=== PATIENT | female | born 1990 | race Caucasian/White ===

== ENCOUNTER 2020-11-13 14:56 | Emergency (ER) | payer SELFPAY ==
[2020-11-13] VITALS (8 sets, daily range): BP systolic 109–133; BP diastolic 81–92; PULSE 81–103; RESP 10–18; TEMP 36.4–36.9; O2SAT 96–100
[2020-11-13 16:46] LABS: Basophils Absolute Auto 0.1 K/mm3 (0.0-0.1); Basophils Percent Auto 0.7 % (0.2-1.2); Eosinophils Absolute Auto 0.1 K/mm3 (0-0.3); Eosinophils Percent Auto 0.7 % (0-4.4); Hematocrit 39.5 % (37.0-47.0); Hemoglobin 13.5 g/dL (12.0-15.0); Immature Granulocyte Absolute 0.02 K/mm3 (0.00-0.031); Immature Granulocyte Percent A 0.2 % (0-0.5); Lymphocytes Absolute Auto 3.08 K/mm3 (0.9-3.2); Lymphocytes Percent Auto 35.2 % (18.3-44.2); Mean Corpuscular HGB Conc 34.2 g/dl (32-36); Mean Corpuscular Hemoglobin 32.2 pg (26-34); Mean Corpuscular Volume 94.3 fl (80-100); Monocytes Absolute Auto 0.4 K/mm3 (0.1-0.6); Monocytes Percent Auto 4.2 % (2.6-8.5); Neutrophils Absolute Auto 5.2 K/mm3 (1.3-6.7); Platelet Count Result 209 k/mm3 (150-375); Red Blood Count 4.19 M/mm3 (4.2-5.4); Red Cell Distribution Width 12.2 % (11.5-14.5); White Blood Count 8.8 K/mm3 (4.5-10.0)
[2020-11-13 16:50] LABS: Add Urine Microscopic? YES; Appearance Urine Cloudy (Clear); Bacteria Urine Trace /hpf; Bilirubin Urine Negative (Negative); Blood Urine Negative (Negative); Color Urine Yellow (Yellow); Glucose Urine UA Negative (Negative); Ketones Urine 1+ mg/dL (Negative); Leukocyte Esterase Ur Trace LEU/UL (Negative); Mucus Urine Few /lpf; Nitrate Urine Negative (Negative); Protein Urine Negative (Negative); RBC Urine 0-2 /hpf (0-2); Specific Grav Ur 1.009 (1.001-1.035); Squamous Epithelial Cell Urine Many /hpf (Few); Urobilinogen Urine Negative mg/dL (<2.0); WBC Urine 0-3 /hpf
[2020-11-13 16:59] LABS: Alanine Aminotransferase 13 U/L (4-35); Albumin Level 4.1 g/dL (3.5-5.1); Alkaline Phosphatase 42 U/L (38-126); Anion Gap 6 mmol/L (8-16); Aspartate Amino Transferase 18 U/L (14-36); Bilirubin,Total 0.4 mg/dL (0.2-1.3); Blood Urea Nitrogen 11 mg/dL (7-17); Calcium 9.1 mg/dL (8.4-10.2); Carbon Dioxide 29 mmol/L (22-30); Chloride 104 mmol/L (98-107); Estimated CRCL calculation 79 ml/min; Estimated Glomerular Filt Rate > 60; Glucose 110 mg/dL (65-105); Potassium 3.3 mmol/L (3.4-5.0); Sodium 139 mmol/L (137-145)
[2020-11-13 17:26] LABS: Ethanol < 10 mg/dL (<10)
[2020-11-13 17:37] LABS: Barbiturate Screen Urine Negative (Negative); Benzodiazepines Screen Urine Negative (Negative)
[2020-11-13 17:41] LABS: Cannabinoid Screen Urine Positive (Negative); Cocaine Screen Urine Negative (Negative); Methadone Screen Urine Negative (Negative); Opiate Screen Urine Negative (Negative); Phencyclidine Screen Urine Negative (Negative)
--- NOTE | 2020-11-13 18:02 | ED.GENADULT ---
HPI - General Adult General Chief complaint: Unspecified Stated complaint: think dehydrated Time Seen by Provider: 11/13/20 16:22 Source: patient Mode of arrival: ambulatory Limitations: no limitations History of Present Illness HPI narrative: 30-year-old female She arrives complaining that she thinks she might be dehydrated But after that her thoughts get pretty disorganized and she really does not explain her thinking very well, for instance she still has a wristband from [place] on and when asked about it just says I thought he might need something She does not indicate any suicidal or homicidal thoughts nor any hallucinations, however she has been not sleeping very much and according to her mom called in somewhat random hyperactivity Patient states that she smokes cigarettes and cannabis but uses no other drugs and does not drink Onset (ago): day(s) Related Data Home Medications Medication Instructions Recorded Confirmed melatonin 5 mg PO HS 11/13/20 11/13/20 Allergies Allergy/AdvReac Type Severity Reaction Status Date / Time bee venom protein (honey bee) Allergy Swelling Verified 11/13/20 16:51 of Lip/Tongue/Throat aripiprazole [From Abilify] AdvReac Other Verified 11/13/20 15:05 escitalopram [From Lexapro] AdvReac Other Verified 11/13/20 15:05 prednisone AdvReac Anxiety Verified 11/13/20 15:05 quetiapine [From Seroquel] AdvReac Agitated Verified 11/13/20 16:51 Review of Systems Review of Systems: ROS unobtainable: Yes unobtainable due to mental status Respiratory: Respiratory: Denies cough Gastrointestinal: Gastrointestinal: Denies diarrhea and Denies vomiting PMFSH Social History Social History Gender identity (if verbalized by the patient): Female Exam Const: General: cooperative and no acute distress Limitations: behavioral limitations HENMT: Head: normal to inspection, normocephalic and atraumatic Ears: external ears normal General nose exam: no epistaxis Eyes: Conjunctivae: conjunctivae normal EOM: EOMs intact bilaterally Neck: Neck: normal visual inspection, supple and no JVD Thyroid: thyroid normal Resp: Effort & Inspection: normal respiratory effort and not labored Auscultation: clear to auscultation bilaterally Cardio: Rate: regular rate Rhythm: regular rhythm Heart sounds: no murmurs GI: GI Palp: Yes Soft to palpation and No Tenderness to palpation present (GI) Skin: General skin exam: normal color and no rashes or lesions noted Neuro: General: moves all extremities and CN's II-XI intact bilaterally Speech: normal speech Extrem: General: normal to inspection and no pedal edema Psych: Speech and movement: Clear speech present Thought process: Other thought process findings present (Circumstantial and disorganized) Course Course Emergency Course: Exam and labs are unremarkable and she is cleared medically for behavioral assessment She was seen by crisis and they report they are satisfied that she is OK for d/c Vital Signs Vital signs: Vital Signs Temperature 36.8 C 11/13/20 14:59 Pulse Rate 95 11/13/20 14:59 Respiratory Rate 18 11/13/20 14:59 Blood Pressure 123/92 H 11/13/20 14:59 Pulse Oximetry 100 11/13/20 14:59 Temperature 36.8 C 11/13/20 23:00 Pulse Rate 81 11/13/20 23:00 Respiratory Rate 14 11/13/20 23:00 Blood Pressure 111/81 11/13/20 23:00 Pulse Oximetry 96 11/13/20 23:00 Medical Decision Making Vital Signs Vital Signs: Vital Signs Temperature 36.8 C 11/13/20 14:59 Pulse Rate 95 11/13/20 14:59 Respiratory Rate 18 11/13/20 14:59 Blood Pressure 123/92 H 11/13/20 14:59 Pulse Oximetry 100 11/13/20 14:59 Temperature 36.8 C 11/13/20 23:00 Pulse Rate 81 11/13/20 23:00 Respiratory Rate 14 11/13/20 23:00 Blood Pressure 111/81 11/13/20 23:00 Pulse Oximetry 96 11/13/20 23:00 Lab Data Result diagrams: 11/13/20 16:37 11/13/20 16:37 [place]
[2020-11-13 18:06] LABS: Thyroid Stimulating Hormone Reflex 0.759 uIU/mL (0.465-4.68)
[2020-11-13 18:07] LABS: Amphetamine Screen Urine Negative (Negative)
[2020-11-13] MEDS: OLANZapine DISPERTAB 5 MG PO (18:49)
[2020-11-13] MEDS: POTASSIUM CHLORIDE 20 MEQ PACKET (FOR LIQUID) 40 MEQ PO (18:49)
--- NOTE | 2020-11-13 18:58 | PC.NURSE ---
When speaking with this patient she tells me that I just feel disconnected from myself. It's like I can usually process numbers but now I can't process numbers. I think I am confused but I don't know if it caused the dehydration. When I asked the patient what she meant by this she stared at me for about 15 seconds and then told me I don't think I know. But you remind me of the eternal sunshine. You know, of the spotless mind. She began to laugh at this time. I asked the patient how she was feeling and again, she stared at me then told me I think I am. I did ask the patient if she was having any feelings of hurting herself or if she was having any suicidal thoughts. The patient stated absolutely not . When asked if she was having violent thoughts towards others, the said the same thing, absolutely not . I then asked her if she feels safe where she lives. She told me I feel safe here but wound not expand on this even when asked.
--- NOTE | 2020-11-13 21:51 | PC.NURSE ---
I spoke with this patient's mother with the patient's permission. Patient's mother reports that she is concerned for the safety of the patient. She tells me that the patient will go out and wander around, dresses inappropriately (wearing her brothers shoes that are multiple sizes too large), and appears to be very depressed. She also tells me that this patient does not appear to be eating well and is not sleeping. Crisis contacted for evaluation after these concerns were expressed along with the information I noted in my notes. ED charge aware.
[2020-11-14 01:31] VITALS: BP 109/74; PULSE 76; RESP 18; O2SAT 97
--- NOTE | 2020-11-14 01:42 | PC.NURSE ---
Mom presented to ED to take pt home. Mom tearful and is concerned with pt being dc'd and wants pt to be seen by a mental health professional. Mom advised that pt was seen by crisis and social media executive did not feel that pt needed to be hospitalized. Mom advised to follow up with MD that was referred and voices her understanding.
== END 2020-11-14 01:49 | disposition home or self-care (01) ==
PROVIDERS: Emergency Provider Emergency Medicine
DX: F31.9 Bipolar disorder, unspecified (principal)
CPT/HCPCS: 36415; 80053; 80307; 81001; 81025; 84443; 85025; 99283; A9270